=== PATIENT | female | born 1995 | race Caucasian/White ===

== ENCOUNTER 2016-08-27 19:24 | Emergency (ER) | payer OTHER ==
[~2016-08-27] VITALS: Ht 152.4 cm; Wt 46.5 kg
[~2016-08-27 19:24] MED LIST: ATARAX,VISTARIL25 MG PO; BENTYL10 MG PO; ENDOCET 5-3251 EACH PO; FLAGYL500 MG PO; IBUPROFEN800 MG PO; KEFLEX500 MG PO; MIRALAX17 GM PO; MOTRIN600 MG PO; Motrin PO; NO MEDICATIONS; NOHOMEMEDS; PEPCID20 MG PO; PERCOCET 5/31 TABLET PO; PREDNISONE10 M1 PO; TORADOL10 MG PO; ZITHROMAX Z-PA250 MG PO; ZOFRAN ODT4 MG PO; ZOFRAN4 MG PO; ZOFRAN8 MG PO
[2016-08-27 19:57] LABS: HEMATOCRIT 36.7 % (36.0-46.0); MCH 29.5 PG (29.0-34.0); MCHC 33.8 G/DL (30.0-36.0); MCV 87.4 FL (83-99); MEAN PLAT.VOLUME 10.6 uM^3 (9.5-12.4); PLATELET COUNT 166 K/uL (156-360); RBC DIS.WIDTH-SD 41.1 % (39-53); WHITE BLOOD COUNT 9.7 K/uL (4.1-10.2)
[2016-08-27 20:06] LABS: CHLORIDE 107 mEq/L (99-109); POTASSIUM 4.1 mEq/L (3.7-5.4); SODIUM 137 mEq/L (136-147)
[2016-08-27 20:08] LABS: GLUCOSE 77 mg/dL (70-99)
[2016-08-27 20:09] LABS: ANION GAP 8 MEQ/L (2-14)
[2016-08-27 20:11] LABS: GFR ESTIMATE (CALCULATED) > 59 mL/min/
[2016-08-27 20:12] LABS: UREA NITROGEN (BUN) 8 mg/dL (9-23)
[2016-08-27 20:37] LABS: QUANTITATIVE HCG 33159.7 MIU/ML
[2016-08-27 21:20] LABS: ADD MIUA? YES; BILIRUBIN NEGATIVE; BLOOD NEGATIVE; COLOR YELLOW ((YELLOW)); GLUCOSE (STRIP) NEGATIVE; KETONES NEGATIVE; LEUKOCYTES NEGATIVE; NITRITE NEGATIVE; PROTEIN (STRIP) 30; SPECIFIC GRAVITY 1.018 (1.000-1.030)
[2016-08-27 21:49] LABS: BACTERIA RARE /HPF; EPITHELIAL CELLS 2+ /HPF; MUCUS NONE SEEN /LPF; RED BLOOD CELLS 0-5 /HPF (0-5); WHITE BLOOD CELLS 0-5 /HPF (0-5)
[2016-08-27 21:50] LABS: AMORPHOUS PHOSPHATE CRYSTALS 4+; CRYSTALS PRESENT
[2016-08-27 22:01] VITALS: BP 93/57
== END 2016-08-27 22:06 | disposition home or self-care (01) ==
LOC: EME 19:24
PROVIDERS: Physician Assistant
DX: O26.891 Other specified pregnancy related conditions, first trimester (principal); R42 Dizziness and giddiness; R53.83 Other fatigue; O99.331 Smoking (tobacco) complicating pregnancy, first trimester; F17.200 Nicotine dependence, unspecified, uncomplicated
CPT/HCPCS: 80048; 81003; 84702; 85027; 99281; 99285; J2405; J7030

== ENCOUNTER 2016-12-29 16:27 | Outpatient (CLI) | payer OTHER ==
[~2016-12-29] VITALS: Ht 152.4 cm; Wt 53.1 kg
[2016-12-29 16:50] VITALS: BP 105/58
[2016-12-29 17:42] LABS: ADD MIUA? YES; BILIRUBIN NEGATIVE; BLOOD NEGATIVE; COLOR YELLOW ((YELLOW)); GLUCOSE (STRIP) NEGATIVE; KETONES NEGATIVE; LEUKOCYTES NEGATIVE; NITRITE NEGATIVE; PROTEIN (STRIP) 30; SPECIFIC GRAVITY 1.024 (1.000-1.030)
[2016-12-29 18:02] VITALS: BP 100/56
[2016-12-29 18:15] LABS: BACTERIA RARE /HPF; EPITHELIAL CELLS NONE SEEN /HPF; MUCUS 4+ /LPF; RED BLOOD CELLS 0-5 /HPF (0-5); UCUL ADDED? NO; WHITE BLOOD CELLS 0-5 /HPF (0-5)
[2016-12-29 18:39] LABS: DRSB INTERNAL CONTROL PASS; PROBE CHECK PASS; SPECIMEN PROCESSING CONTROL PASS
[2016-12-29 18:43] LABS: AMPHETAMINE NEGATIVE (500 ng/mL); BARBITURATES NEGATIVE (200 ng/mL); BENZODIAZEPINES NEGATIVE (150 ng/mL); COCAINE NEGATIVE (150 ng/mL); INTERNAL CONTROLS VALID? YES; METHADONE NEGATIVE (200 ng/mL); METHAMPHETAMINE NEGATIVE (500 ng/mL); OPIATES (MORPHINE) NEGATIVE (100 ng/mL); OXYCODONE NEGATIVE (100 ng/mL); PHENCYCLIDINE NEGATIVE (25 ng/mL); PROPOXYPHENE NEGATIVE (300 ng/mL); THC CANNABINOIDS NEGATIVE (50 ng/mL); TRICYCLIC ANTIDEPRESSANTS NEGATIVE (300 ng/mL)
[2016-12-29 19:11] VITALS: BP 105/56
[2016-12-29 22:27] LABS: CANDIDA DNA PROBE NEGATIVE; GARDNERELLA DNA PROBE NEGATIVE; INTERNAL CONTROL VALID? YES
[2016-12-30 13:38] LABS: CHLAMYDIA TRACHOMATIS NEGATIVE; NEISSERIA GONORRHOEAE NEGATIVE
== END 2016-12-29 22:18 | disposition home or self-care (01) ==
LOC: LDRP-OP 16:27 → 2WEST 16:30
PROVIDERS: Midwife; Obstetrics & Gynecology
DX: O26.893 Other specified pregnancy related conditions, third trimester (principal); O99.333 Smoking (tobacco) complicating pregnancy, third trimester; F17.210 Nicotine dependence, cigarettes, uncomplicated; Z3A.33 33 weeks gestation of pregnancy; R10.9 Unspecified abdominal pain
CPT/HCPCS: 59025; 81003; 82731; 87081; 87480; 87491; 87510; 87591; 87653; 87660; G0378

== ENCOUNTER 2017-01-24 00:59 | Outpatient (CLI) | payer OTHER ==
[~2017-01-24] VITALS: Ht 152.4 cm; Wt 53.0 kg
[2017-01-24 01:16] VITALS: BP 112/69
[2017-01-24 03:16] LABS: DRSB INTERNAL CONTROL PASS; PROBE CHECK PASS; SPECIMEN PROCESSING CONTROL PASS
[2017-01-24 03:29] LABS: AMPHETAMINE NEGATIVE (500 ng/mL); BARBITURATES NEGATIVE (200 ng/mL); BENZODIAZEPINES NEGATIVE (150 ng/mL); COCAINE NEGATIVE (150 ng/mL); INTERNAL CONTROLS VALID? YES; METHADONE NEGATIVE (200 ng/mL); METHAMPHETAMINE NEGATIVE (500 ng/mL); OPIATES (MORPHINE) NEGATIVE (100 ng/mL); OXYCODONE NEGATIVE (100 ng/mL); PHENCYCLIDINE NEGATIVE (25 ng/mL); PROPOXYPHENE NEGATIVE (300 ng/mL); THC CANNABINOIDS NEGATIVE (50 ng/mL); TRICYCLIC ANTIDEPRESSANTS NEGATIVE (300 ng/mL)
[2017-01-24 04:11] VITALS: BP 99/48
== END 2017-01-24 07:21 | disposition home or self-care (01) ==
LOC: LDRP-OP 00:59 → 2WEST 01:00 → LDRP-OP 02-16 22:22
PROVIDERS: Advanced Practice Midwife
DX: O47.03 False labor before 37 completed weeks of gestation, third trimester (principal); O09.33 Supervision of pregnancy with insufficient antenatal care, third trimester; O99.333 Smoking (tobacco) complicating pregnancy, third trimester; Z3A.36 36 weeks gestation of pregnancy
CPT/HCPCS: 59025; 87081; 87653; G0378; J2405; J7120

== ENCOUNTER 2017-02-03 20:38 | Inpatient (IN) | payer OTHER ==
[~2017-02-03] VITALS: Ht 152.4 cm; Wt 53.2 kg
[2017-02-03 20:53] VITALS: BP 94/60
[2017-02-03 22:07] LABS: EOSINOPHIL (%) 1.7 % (0-5); EOSINOPHIL COUNT 0.2 K/uL (0-0.3); HEMATOCRIT 32.4 % (36.0-46.0); IMMATURE GRANULOCYTE (%) 1.2 % (0.0-0.7); IMMATURE GRANULOCYTE COUNT 0.1 K/uL; INSTRUMENT ABS NEUTROPHIL CT 6.7 K/uL; LYMPHOCYTE COUNT 2.2 K/uL (1.0-2.8); MCH 30.2 PG (29.0-34.0); MCHC 34.3 G/DL (30.0-36.0); MEAN PLAT.VOLUME 10.5 uM^3 (9.5-12.4); MONOCYTE (%) 7.5 % (3-12); MONOCYTE COUNT 0.7 K/uL (0-0.8); NEUTROPHIL (%) 67.7 % (45-76); NEUTROPHIL COUNT 6.7 K/uL (1.8-6.4); PLATELET COUNT 147 K/uL (156-360); RBC DIS.WIDTH-CV 12.6 % (11.8-14.6); RED BLOOD COUNT 3.68 M/uL (3.80-5.20); WHITE BLOOD COUNT 9.9 K/uL (4.1-10.2)
[2017-02-03 22:16] VITALS: BP 98/65
[2017-02-03 23:38] VITALS: BP 99/57
[2017-02-04] VITALS (14 sets, daily range): BP systolic 95–115; BP diastolic 57–75
[2017-02-04 00:17] LABS: AMPHETAMINE NEGATIVE (500 ng/mL); BARBITURATES NEGATIVE (200 ng/mL); BENZODIAZEPINES NEGATIVE (150 ng/mL); COCAINE NEGATIVE (150 ng/mL); INTERNAL CONTROLS VALID? YES; METHADONE NEGATIVE (200 ng/mL); METHAMPHETAMINE NEGATIVE (500 ng/mL); OPIATES (MORPHINE) NEGATIVE (100 ng/mL); OXYCODONE NEGATIVE (100 ng/mL); PHENCYCLIDINE NEGATIVE (25 ng/mL); PROPOXYPHENE NEGATIVE (300 ng/mL); THC CANNABINOIDS NEGATIVE (50 ng/mL); TRICYCLIC ANTIDEPRESSANTS NEGATIVE (300 ng/mL)
[2017-02-04] MEDS ORDERED: IBUPROFEN800 MG PO (05:22)
[2017-02-05 07:42] VITALS: BP 101/57
== END 2017-02-05 14:40 | disposition home or self-care (01) | DRG 775 ==
LOC: LDRP-OP 20:38 → 2WEST 20:39 → LDRP-OP 03-28 07:30
PROVIDERS: Advanced Practice Midwife
DX: O69.81X0 Labor and delivery complicated by cord around neck, without compression, not applicable or unspecified (principal); O99.334 Smoking (tobacco) complicating childbirth; Z3A.38 38 weeks gestation of pregnancy; Z37.0 Single live birth; F17.200 Nicotine dependence, unspecified, uncomplicated
CPT/HCPCS: 85025; G0378; J0595; J1050; J7120

== ENCOUNTER 2017-03-13 00:46 | Emergency (ER) | payer OTHER ==
[~2017-03-13] VITALS: Ht 152.4 cm; Wt 49.7 kg
[2017-03-13 00:54] VITALS: BP 133/90
[2017-03-13] MEDS ORDERED: ZITHROMAX Z-PA250 MG PO (02:14)
== END 2017-03-13 02:48 | disposition home or self-care (01) ==
LOC: EME 00:46
DX: J01.90 Acute sinusitis, unspecified (principal); J02.9 Acute pharyngitis, unspecified; H92.01 Otalgia, right ear; F17.200 Nicotine dependence, unspecified, uncomplicated
CPT/HCPCS: 87651 90; 99281; 99284

== ENCOUNTER 2017-04-11 00:54 | Emergency (ER) | payer OTHER ==
[~2017-04-11] VITALS: Ht 152.4 cm; Wt 48.5 kg
[2017-04-11 01:45] LABS: HEMATOCRIT 36.8 % (36.0-46.0); MCH 28.9 PG (29.0-34.0); MCHC 33.4 G/DL (30.0-36.0); MCV 86.6 FL (83-99); MEAN PLAT.VOLUME 10.6 uM^3 (9.5-12.4); PLATELET COUNT 226 K/uL (156-360); RBC DIS.WIDTH-SD 37.9 % (39-53); RED BLOOD COUNT 4.25 M/uL (3.80-5.20); WHITE BLOOD COUNT 7.6 K/uL (4.1-10.2)
[2017-04-11 01:48] LABS: ADD MIUA? YES; BILIRUBIN NEGATIVE; BLOOD LARGE; COLOR YELLOW ((YELLOW)); GLUCOSE (STRIP) NEGATIVE; KETONES 20; LEUKOCYTES LARGE; NITRITE NEGATIVE; PROTEIN (STRIP) 30; SPECIFIC GRAVITY 1.025 (1.000-1.030)
[2017-04-11 01:53] LABS: CHLORIDE 109 mEq/L (99-109); POTASSIUM 3.6 mEq/L (3.7-5.4); SODIUM 139 mEq/L (136-147)
[2017-04-11 01:55] LABS: GLUCOSE 79 mg/dL (70-99)
[2017-04-11 01:55] LABS: BACTERIA RARE /HPF; EPITHELIAL CELLS RARE /HPF; MUCUS 1+ /LPF; RED BLOOD CELLS TNTC /HPF (0-5); UCUL ADDED? YES; WHITE BLOOD CELLS 30-40 /HPF (0-5)
[2017-04-11 01:56] LABS: ANION GAP 8 MEQ/L (2-14)
[2017-04-11 01:57] LABS: TOTAL BILIRUBIN 0.4 mg/dL (0.0-1.0)
[2017-04-11 01:59] LABS: ALKALINE PHOSPHATASE 54 IU/L (3-129); GFR ESTIMATE (CALCULATED) > 59 mL/min/
[2017-04-11 02:00] LABS: UREA NITROGEN (BUN) 17 mg/dL (9-23)
[2017-04-11 02:08] LABS: QUANTITATIVE HCG < 4.0 MIU/ML
[2017-04-11] MEDS ORDERED: BACTRIM,SEPT1 TABLET PO (02:43)
[2017-04-11 03:26] VITALS: BP 113/78
== END 2017-04-11 03:28 | disposition home or self-care (01) ==
LOC: EME 00:54
DX: N39.0 Urinary tract infection, site not specified (principal); N93.9 Abnormal uterine and vaginal bleeding, unspecified; F17.200 Nicotine dependence, unspecified, uncomplicated
CPT/HCPCS: 80053; 81003; 84702; 85027; 87077; 87086; 87186; 99281; 99283

== ENCOUNTER 2017-06-04 16:51 | Emergency (ER) | payer OTHER ==
[~2017-06-04] VITALS: Ht 152.4 cm; Wt 45.3 kg
[~2017-06-04 16:51] MED LIST changes: +BACTRIM,SEPT1 TABLET PO
[2017-06-04 18:51] LABS: HEMATOCRIT 40.3 % (36.0-46.0); MCH 29.2 PG (29.0-34.0); MCV 85.9 FL (83-99); MEAN PLAT.VOLUME 10.6 uM^3 (9.5-12.4); PLATELET COUNT 183 K/uL (156-360); RBC DIS.WIDTH-CV 12.3 % (11.8-14.6); RBC DIS.WIDTH-SD 38.4 % (39-53); RED BLOOD COUNT 4.69 M/uL (3.80-5.20); WHITE BLOOD COUNT 3.8 K/uL (4.1-10.2)
[2017-06-04 19:13] LABS: ADD MIUA? YES; BILIRUBIN NEGATIVE; BLOOD LARGE; COLOR YELLOW ((YELLOW)); GLUCOSE (STRIP) NEGATIVE; KETONES 80; LEUKOCYTES NEGATIVE; NITRITE NEGATIVE; PROTEIN (STRIP) 100; SPECIFIC GRAVITY 1.031 (1.000-1.030); UROBILINOGEN 0.2 MG/DL (0.2-1.0)
[2017-06-04 19:22] LABS: BACTERIA RARE /HPF; EPITHELIAL CELLS 2+ /HPF; MUCUS 1+ /LPF
[2017-06-04] MEDS ORDERED: MOTRIN600 MG PO (20:12)
[2017-06-04 20:28] VITALS: BP 106/75
[2017-06-07 12:02] LABS: CHLAMYDIA TRACHOMATIS NEGATIVE; NEISSERIA GONORRHOEAE NEGATIVE
== END 2017-06-04 20:29 | disposition home or self-care (01) ==
LOC: EME 16:51
PROVIDERS: Physician Assistant
DX: J20.8 Acute bronchitis due to other specified organisms (principal); N93.8 Other specified abnormal uterine and vaginal bleeding; F41.9 Anxiety disorder, unspecified; F17.200 Nicotine dependence, unspecified, uncomplicated; Z88.6 Allergy status to analgesic agent; Z88.5 Allergy status to narcotic agent
CPT/HCPCS: 81003; 84702; 85027; 87210; 87491; 87591; 87651 90; 99281; 99284